=== PATIENT | female | born 2000 | race Caucasian/White ===

== ENCOUNTER 2021-09-25 14:48 | Outpatient (CLI) | payer OTHER | END 2021-09-25 14:49 | disposition home or self-care (01) | LOC: CSHRAD 14:48 | PROVIDERS: ATTEND Student in an Organized Health Care Education/Training Program | DX: M54.50 Low back pain, unspecified (principal); M94.8X8 Other specified disorders of cartilage, other site | CPT/HCPCS: 72202 ==

== ENCOUNTER 2021-10-09 14:16 | Outpatient (CLI) | payer OTHER | END 2021-10-09 14:17 | disposition home or self-care (01) | LOC: CSHRAD 14:16 | PROVIDERS: ATTEND Student in an Organized Health Care Education/Training Program | DX: M54.50 Low back pain, unspecified (principal); M43.9 Deforming dorsopathy, unspecified | CPT/HCPCS: 72070; 72072; 72080; 72100 ==